=== PATIENT | female | born 1985 | race Caucasian/White ===

== ENCOUNTER 2016-08-27 11:47 | Emergency (ER) | payer OTHER ==
[~2016-08-27 11:47] MED LIST: /MOM400 PO; ACET50TA PO; ANUS2.5C2 EXT; DOCU10ELUD PO; EXCETAB80 PO; IBUP600T26 PO; IBUP80TA PO; LANOOIN21 EX; PERC5TAB6 PO; PRENTAB9 PO; TRAZ50TA4 PO; VALT1TAB PO; VALT500T PO; VIST25CA PO; VITAPRTA PO; ZOLO25TA PO
[2016-08-27] MEDS ORDERED: PERCOCET 5MG/325MG TAB As Ordered ONE (12:16)
--- NOTE | 2016-08-27 12:21 | EDDOCDS ---
Physician Documentation [facility] Name: Wilma Ulloa Age: 31 yrs Sex: Female : 1985 Arrival Date: 08/27/2016 Time: 11:47 Bed TR7 Private MD: Disposition: 08/27/16 12:14 Discharged to Home/Self Care. Impression: Dental caries on pit and fissure surface penetrating into pulp, Jaw pain. - Condition is Stable. - Discharge Instructions: Dental Pain. - Prescriptions for Percocet 5- 325 mg Oral Tablet - take 1 tablet by ORAL route every 6 hours As needed MDD: 4 tabs; 20 tablet. penicillin V potassium 500 mg Oral Tablet - take 1 tablet by ORAL route 4 times per day for 10 days; 40 tablet. - Medication Reconciliation, Local Pharmacy Hours form. - Follow up: Your, Dentist; When: As soon as possible; Reason: Further diagnostic work-up, Continuance of care. - Problem is an ongoing problem. - Symptoms have worsened. Historical: - Allergies: no known allergies; - Home Meds: 1. Motrin Oral 600 mg 2. Tylenol 650 Oral 3. Valtrex 500 mg oral tab 2 tabs once daily - PMHx: HSV; - PSHx: Tubal ligation; Hysterectomy; - Social history: Smoking status: Patient uses tobacco products, current every day smoker. No barriers to communication noted, The patient speaks fluent Sammarinese. - Family history: Not pertinent. - : The pt / caregiver states he / she is not on anticoagulants. Home medication list is obtained from the patient. - Exposure Risk Screening:: None identified. 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 2 in. (157.48 cm) (R); Pain 9/10; 11:49 Body Mass Index 39.32 (97.52 kg, 157.48 cm) jrd MDM: 12:13 oxyCODONE-acetaminophen 5 mg-325 mg 1 tabs PO once ordered. 12:19 Financial registration complete. mm15 Administered Medications: 12:20 Drug: oxyCODONE-acetaminophen 1 tabs [oxycodone-acetaminophen 5 mg-325 mg tablet (1 js13 tabs)] Route: PO; 12:20 Follow up: Response: Pt left department before re-evaluation is appropriate js13 Signatures: Wilfrido Kumar, HEALTH RESEARCHER HEALTH RESEARCHER Rachel CardenasRN RN js13 Cally Richards mm15 MTDD
--- NOTE | 2016-08-27 12:21 | EDDOCDS ---
Nurse's Notes [facility] Name: Wilma Ulloa Age: 31 yrs Sex: Female : 1985 Arrival Date: 08/27/2016 Time: 11:47 Bed TR7 Private MD: Diagnosis: Dental caries on pit and fissure surface penetrating into pulp;Jaw pain Presentation: 08/27 12:02 Presenting complaint: Patient states: Patient states pain in right jaw from tooth js13 decay. Patient states she has bad teeth. Getting progressively worse in last 2 weeks and has appointment tomorrow with dentist. Adult Sepsis Screening: The patient does not have new or worsening altered mentation. Patient's respiratory rate is less than 22. Systolic blood pressure is greater than 100. Patient has a qSOFA score of 0- Negative Sepsis Screen. Suicide/Homicide risk assessment- the patient denies having any suicidal and/or homicidal ideations and does not present with any other emotional, behavioral or mental health complaints. 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 Transition of care: patient was not received from another setting of care. 12:02 Acuity: TISHA Level 4 js13 12:02 Method Of Arrival: Walkin/Carried/Asstd js13 Triage Assessment: 12:04 General: Appears in no apparent distress, Behavior is appropriate for age, cooperative. js13 Pain: Location: mouth Pain currently is 10 out of 10 on a pain scale. Pt Declines HIV testing. Neurological: Level of Consciousness is awake, alert. EENT: Reports pain in right jaw. Respiratory: Airway is patent Respiratory effort is even, unlabored, Respiratory pattern is regular, symmetrical. Derm: Skin is pink, warm & dry. 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 Motrin Oral 600 mg 2. Tylenol 650 Oral 3. Valtrex 500 mg oral tab 2 tabs once daily - PMHx: HSV; - PSHx: Tubal ligation; Hysterectomy; - Social history: Smoking status: Patient uses tobacco products, current every day smoker. No barriers to communication noted, The patient speaks fluent Kinyarwanda. - Family history: Not pertinent. - : The pt / caregiver states he / she is not on anticoagulants. Home medication list is obtained from the patient. - Exposure Risk Screening:: None identified. Screenin:05 Screening information is obtained from the patient. Fall risk: No risks identified. js13 Assistance ADL's: requires no assistance with activities of daily living. Abuse/DV Screen: The patient / caregiver reports he/she is: not in a situation that causes fear, pain or injury. Nutritional screening: No deficits noted. Advance Directives: Currently, there is no health care proxy. home support is adequate. Vital Signs: 11:49 BP 135 / 72 RA Sitting (auto/reg); Pulse 77; Resp 18; Temp 97.1; Pulse Ox 100% on R/A; jrd Weight 97.52 kg (R); Height 5 ft. 2 in. (157.48 cm) (R); Pain 9/10; 11:49 Body Mass Index 39.32 (97.52 kg, 157.48 cm) [facility] Vitals: 11:49 Log In Time: August 27, 2016 at 11:35. [facility] ED Course: 11:49 Patient visited by Trenton Anton PCA. jrd 11:49 Patient moved to Waiting jrd 11:50 Patient visited by Trenton Anton PCA. jrd 11:50 Patient moved to Pre RCE jrd 12:04 Triage Initiated js13 12:05 The patient / caregiver is instructed regarding the plan of care and ED course. js13 12:05 No IV's were initiated during this patient's visit. No procedures done that require js13 assistance. 12:06 Patient visited by Rachel Rm RN. js13 12:06 Patient moved to Triage 3 js13 12:06 Patient moved to Triage 2 ar3 12:07 [facility]fr[facility] F[facility] juju 12:07 Patient visited by Wilfrido Kumar FNP. juju 12:07 Patient visited by Wilfrido Kumar FNP. ke 12:13 Your, Dentist is Referral Physician. ke 12:19 Patient moved to TR7 ar3 Administered Medications: 12:20 Drug: oxyCODONE-acetaminophen 1 tabs [oxycodone-acetaminophen 5 mg-325 mg tablet (1 js13 tabs)] Route: PO; 12:20 Follow up: Response: Pt left department before re-evaluation is appropriate js13 Order Results: There are currently no results for this order. Outcome: 12:14 Discharge ordered by Provider. ke 12:20 Discharge Assessment: Patient awake, alert and oriented x 3. No cognitive and/or js13 functional deficits noted. Patient verbalized understanding of disposition instructions. patient administered narcotics - yes. Pt provided with safe discharge. The following High Risk Discharge criteria are identified: None. Discharged to home ambulatory. Condition: stable. Discharge instructions given to patient, Instructed on discharge instructions, follow up and referral plans. medication usage, Demonstrated understanding of instructions, medications, Pt was receptive of discharge instructions/ teaching. Prescriptions given X 2. No special radiology studies were completed. Property :Personal belongings accompany Pt. 12:20 Patient left the ED. js13 Signatures: Wilfrido Kumra, CONVERTING OPERATOR CONVERTING OPERATOR Lindsay Sears, GAME TESTER GAME TESTER [email or web address] Rachel Rm,CANDI RN js13 Trenton Anton, GAME TESTER GAME TESTER jrd MARY
--- NOTE | 2016-08-29 13:21 | EDDOCDS ---
Physician Documentation [facility] Name: Wilma Ulloa Age: 31 yrs Sex: Female : 1985 Arrival Date: 08/27/2016 Time: 11:47 Bed TR7 Private MD: Disposition: 08/27/16 12:14 Discharged to Home/Self Care. Impression: Dental caries on pit and fissure surface penetrating into pulp, Jaw pain. - Condition is Stable. - Discharge Instructions: Dental Pain. - Prescriptions for Percocet 5- 325 mg Oral Tablet - take 1 tablet by ORAL route every 6 hours As needed MDD: 4 tabs; 20 tablet. penicillin V potassium 500 mg Oral Tablet - take 1 tablet by ORAL route 4 times per day for 10 days; 40 tablet. - Medication Reconciliation, Local Pharmacy Hours form. - Follow up: Your, Dentist; When: As soon as possible; Reason: Further diagnostic work-up, Continuance of care. - Problem is an ongoing problem. - Symptoms have worsened. Historical: - Allergies: no known allergies; - Home Meds: 1. Motrin Oral 600 mg 2. Tylenol 650 Oral 3. Valtrex 500 mg oral tab 2 tabs once daily - PMHx: HSV; - PSHx: Tubal ligation; Hysterectomy; - Social history: Smoking status: Patient uses tobacco products, current every day smoker. No barriers to communication noted, The patient speaks fluent Iranian. - Family history: Not pertinent. - : The pt / caregiver states he / she is not on anticoagulants. Home medication list is obtained from the patient. - Exposure Risk Screening:: None identified. 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 2 in. (157.48 cm) (R); Pain 9/10; 11:49 Body Mass Index 39.32 (97.52 kg, 157.48 cm) jrd MDM: 12:13 oxyCODONE-acetaminophen 5 mg-325 mg 1 tabs PO once ordered. 12:19 Financial registration complete. mm15 12:43 [facility] Payment Agreement was scanned into [employer] and attached to record. mm15 14:53 T-Sheet-- Draft Copy was scanned into [employer] and attached to record. gb Administered Medications: 12:20 Drug: oxyCODONE-acetaminophen 1 tabs [oxycodone-acetaminophen 5 mg-325 mg tablet (1 js13 tabs)] Route: PO; 12:20 Follow up: Response: Pt left department before re-evaluation is appropriate js13 Signatures: Eliza Valdes, Kevin Reg Wilfrido Shook, LEATHER COVERER LEATHER COVERER Rachel Cardenas,RN RN js13 Cally Richards mm15 The chart was reviewed and I authenticate all verbal orders and agree with the evaluation and treatment provided.Attachments: 12:43 [facility] Payment Agreement mm15 14:53 T-Sheet-- Draft Copy gb Chart Complete MTDD
--- NOTE | 2016-08-29 13:21 | EDDOCDS ---
Nurse's Notes [facility] Name: Wilma Ulloa Age: 31 yrs Sex: Female : 1985 Arrival Date: 08/27/2016 Time: 11:47 Bed TR7 Private MD: Diagnosis: Dental caries on pit and fissure surface penetrating into pulp;Jaw pain Presentation: 08/27 12:02 Presenting complaint: Patient states: Patient states pain in right jaw from tooth js13 decay. Patient states she has bad teeth. Getting progressively worse in last 2 weeks and has appointment tomorrow with dentist. Adult Sepsis Screening: The patient does not have new or worsening altered mentation. Patient's respiratory rate is less than 22. Systolic blood pressure is greater than 100. Patient has a qSOFA score of 0- Negative Sepsis Screen. Suicide/Homicide risk assessment- the patient denies having any suicidal and/or homicidal ideations and does not present with any other emotional, behavioral or mental health complaints. 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 Transition of care: patient was not received from another setting of care. 12:02 Acuity: TISHA Level 4 js13 12:02 Method Of Arrival: Walkin/Carried/Asstd js13 Triage Assessment: 12:04 General: Appears in no apparent distress, Behavior is appropriate for age, cooperative. js13 Pain: Location: mouth Pain currently is 10 out of 10 on a pain scale. Pt Declines HIV testing. Neurological: Level of Consciousness is awake, alert. EENT: Reports pain in right jaw. Respiratory: Airway is patent Respiratory effort is even, unlabored, Respiratory pattern is regular, symmetrical. Derm: Skin is pink, warm & dry. 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 Motrin Oral 600 mg 2. Tylenol 650 Oral 3. Valtrex 500 mg oral tab 2 tabs once daily - PMHx: HSV; - PSHx: Tubal ligation; Hysterectomy; - Social history: Smoking status: Patient uses tobacco products, current every day smoker. No barriers to communication noted, The patient speaks fluent Urdu. - Family history: Not pertinent. - : The pt / caregiver states he / she is not on anticoagulants. Home medication list is obtained from the patient. - Exposure Risk Screening:: None identified. Screenin:05 Screening information is obtained from the patient. Fall risk: No risks identified. js13 Assistance ADL's: requires no assistance with activities of daily living. Abuse/DV Screen: The patient / caregiver reports he/she is: not in a situation that causes fear, pain or injury. Nutritional screening: No deficits noted. Advance Directives: Currently, there is no health care proxy. home support is adequate. Vital Signs: 11:49 BP 135 / 72 RA Sitting (auto/reg); Pulse 77; Resp 18; Temp 97.1; Pulse Ox 100% on R/A; jrd Weight 97.52 kg (R); Height 5 ft. 2 in. (157.48 cm) (R); Pain 9/10; 11:49 Body Mass Index 39.32 (97.52 kg, 157.48 cm) [facility] Vitals: 11:49 Log In Time: August 27, 2016 at 11:35. [facility] ED Course: 11:49 Patient visited by Trenton Anton PCA. jrd 11:49 Patient moved to Waiting jrd 11:50 Patient visited by Trenton Anton PCA. jrd 11:50 Patient moved to Pre RCE jrd 12:04 Triage Initiated js13 12:05 The patient / caregiver is instructed regarding the plan of care and ED course. js13 12:05 No IV's were initiated during this patient's visit. No procedures done that require js13 assistance. 12:06 Patient visited by Rachel Rm RN. js13 12:06 Patient moved to Triage 3 js13 12:06 Patient moved to Triage 2 ar3 12:07 Wilfrido Kumar FNP is PHCP. ke 12:07 Patient visited by Wilfrido Kumar FNP. ke 12:07 Patient visited by Wilfrido Kumar FNP. ke 12:13 Your, Dentist is Referral Physician. ke 12:19 Patient moved to TR7 ar3 12:43 [facility] Payment Agreement was scanned into [facility] and attached to record. mm15 14:53 T-Sheet-- Draft Copy was scanned into [employer] [facility] and attached to record. gb Administered Medications: 12:20 Drug: oxyCODONE-acetaminophen 1 tabs [oxycodone-acetaminophen 5 mg-325 mg tablet (1 js13 tabs)] Route: PO; 12:20 Follow up: Response: Pt left department before re-evaluation is appropriate js13 Order Results: There are currently no results for this order. Outcome: 12:14 Discharge ordered by Provider. ke 12:20 Discharge Assessment: Patient awake, alert and oriented x 3. No cognitive and/or js13 functional deficits noted. Patient verbalized understanding of disposition instructions. patient administered narcotics - yes. Pt provided with safe discharge. The following High Risk Discharge criteria are identified: None. Discharged to home ambulatory. Condition: stable. Discharge instructions given to patient, Instructed on discharge instructions, follow up and referral plans. medication usage, Demonstrated understanding of instructions, medications, Pt was receptive of discharge instructions/ teaching. Prescriptions given X 2. No special radiology studies were completed. Property :Personal belongings accompany Pt. 12:20 Patient left the ED. js13 Signatures: Eliza Valdes, Reg Reg gb Wilfrido Kumar, COPYWRITER COPYWRITER Lindsay Sears, GMAT INSTRUCTOR GMAT INSTRUCTOR ar3 Rachel Rm,CANDI RN js13 Cally Richards mm15 Trenton Anton, GMAT INSTRUCTOR GMAT INSTRUCTOR jrd Chart Complete MARY
--- NOTE | 2016-08-29 13:21 | EDDOCDS ---
Physician Documentation [facility] Name: Wilma Ulloa Age: 31 yrs Sex: Female : 1985 Arrival Date: 08/27/2016 Time: 11:47 Bed TR7 Private MD: Disposition: 08/27/16 12:14 Discharged to Home/Self Care. Impression: Dental caries on pit and fissure surface penetrating into pulp, Jaw pain. - Condition is Stable. - Discharge Instructions: Dental Pain. - Prescriptions for Percocet 5- 325 mg Oral Tablet - take 1 tablet by ORAL route every 6 hours As needed MDD: 4 tabs; 20 tablet. penicillin V potassium 500 mg Oral Tablet - take 1 tablet by ORAL route 4 times per day for 10 days; 40 tablet. - Medication Reconciliation, Local Pharmacy Hours form. - Follow up: Your, Dentist; When: As soon as possible; Reason: Further diagnostic work-up, Continuance of care. - Problem is an ongoing problem. - Symptoms have worsened. Historical: - Allergies: no known allergies; - Home Meds: 1. Motrin Oral 600 mg 2. Tylenol 650 Oral 3. Valtrex 500 mg oral tab 2 tabs once daily - PMHx: HSV; - PSHx: Tubal ligation; Hysterectomy; - Social history: Smoking status: Patient uses tobacco products, current every day smoker. No barriers to communication noted, The patient speaks fluent Gibraltarian. - Family history: Not pertinent. - : The pt / caregiver states he / she is not on anticoagulants. Home medication list is obtained from the patient. - Exposure Risk Screening:: None identified. 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 2 in. (157.48 cm) (R); Pain 9/10; 11:49 Body Mass Index 39.32 (97.52 kg, 157.48 cm) jrd MDM: 12:13 oxyCODONE-acetaminophen 5 mg-325 mg 1 tabs PO once ordered. 12:19 Financial registration complete. mm15 12:43 [facility] Payment Agreement was scanned into [employer] and attached to record. mm15 14:53 T-Sheet-- Draft Copy was scanned into [employer] and attached to record. gb Administered Medications: 12:20 Drug: oxyCODONE-acetaminophen 1 tabs [oxycodone-acetaminophen 5 mg-325 mg tablet (1 js13 tabs)] Route: PO; 12:20 Follow up: Response: Pt left department before re-evaluation is appropriate js13 Signatures: Eliza Valdes, Kevin Reg Wilfrido Shook, OIL WELL DRILLING MANAGER OIL WELL DRILLING MANAGER Rachel Cardenas,RN RN js13 Cally Richards mm15 The chart was reviewed and I authenticate all verbal orders and agree with the evaluation and treatment provided.Attachments: 12:43 [facility] Payment Agreement mm15 14:53 T-Sheet-- Draft Copy gb Chart Complete MTDD
== END 2016-08-27 12:20 | disposition home or self-care (01) ==
LOC: M ED 11:47
DX: K02.9 Dental caries, unspecified (principal); K08.89 Other specified disorders of teeth and supporting structures; B00.9 Herpesviral infection, unspecified; Z72.0 Tobacco use; Z79.899 Other long term (current) drug therapy

== ENCOUNTER 2018-03-07 13:34 | Emergency (ER) | payer OTHER ==
[2018-03-07] MEDS: NORCO, ANEXSIA 5/325MG TABLET (HYDROcodone/ACETAMINOPHEN) PO (14:52)
== END 2018-03-07 14:54 | disposition home or self-care (01) ==
LOC: M ED 13:34
DX: R68.84 Jaw pain (principal); K08.89 Other specified disorders of teeth and supporting structures; H60.92 Unspecified otitis externa, left ear; F17.200 Nicotine dependence, unspecified, uncomplicated; Z79.2 Long term (current) use of antibiotics; Z79.899 Other long term (current) drug therapy; Z86.19 Personal history of other infectious and parasitic diseases
CPT/HCPCS: 99282

== ENCOUNTER 2018-03-07 21:44 | Emergency (ER) | payer OTHER ==
[2018-03-07] MEDS: OXYCODONE/APAP 5MG/325MG(BULK FOR ED) 1 TABLET PO (22:27)
== END 2018-03-07 22:30 | disposition home or self-care (01) ==
LOC: M ED 21:44
DX: H92.02 Otalgia, left ear (principal); K13.79 Other lesions of oral mucosa; R22.0 Localized swelling, mass and lump, head; H66.42 Suppurative otitis media, unspecified, left ear; A60.00 Herpesviral infection of urogenital system, unspecified; F17.210 Nicotine dependence, cigarettes, uncomplicated; Z79.2 Long term (current) use of antibiotics; Z79.899 Other long term (current) drug therapy
CPT/HCPCS: 99282

== ENCOUNTER 2019-08-11 23:19 | Emergency (ER) | payer BC, OTHER ==
[~2019-08-11] VITALS: Ht 157.5 cm; Wt 116.9 kg
[~2019-08-11 23:19] MED LIST changes: -/MOM400 PO; -ACET50TA PO; +AMOX500T PO; +CLEO300C2 PO; -DOCU10ELUD PO; +DOCU5LIQ PO; +HYDR-3715 PO; +MAGICMW SS; +MAPA500T17 PO; +MAPA500T2 PO; +MILK10SU PO; +PERC5TAB12 PO; -PERC5TAB6 PO; +TRAZ-252 PO; -TRAZ50TA4 PO
[2019-08-11] MEDS ORDERED: DICL75TA PO (23:27)
[2019-08-11] MEDS ORDERED: TIZA4TAB4 PO (23:27)
[2019-08-12] MEDS ORDERED: LIDOCAINE 4% CREAM 5GM (LMX4) TOP STA (01:40)
[2019-08-12] MEDS ORDERED: methylPREDNISolone INJ 125 MG/2 ML VIAL (J2930) IM ONE (01:45)
[2019-08-12] MEDS ORDERED: diazePAM 10 MG TAB PO ONE (01:45)
--- NOTE | 2019-08-12 02:08 | REPVR ---
PROCEDURE INFORMATION: Exam: CT Lumbar Spine Without Contrast Exam date and time: 08/12/2019 1:40 AM Age: 34 years old Clinical indication: Other: Tender leg pain; Additional info: PT tender, radiculopathy R TECHNIQUE: Imaging protocol: Computed tomography images of the lumbar spine without contrast. Radiation optimization: All CT scans at this facility use at least one of these dose optimization techniques: automated exposure control; mA and/or kV adjustment per patient size (includes targeted exams where dose is matched to clinical indication); or iterative reconstruction. COMPARISON: No relevant prior studies available. FINDINGS: Vertebrae: No acute fracture. Normal alignment. Discs/Spinal canal/Neural foramina: Minimal to mild multilevel facet arthropathy. Minimal posterior central protrusion at L4-L5. Mild interspace narrowing with vacuum phenomenon at L5-S1 with mild posterior central protrusion of the disc with early osteophytes. No significant spinal or foraminal stenosis. Appendix: A normal appendix is seen. Soft tissues: Unremarkable. IMPRESSION: Early degenerative changes, particularly degenerative disc change at L5-S1. No significant spinal or foraminal stenosis. Electronically signed by: Juan Duque On 08/12/2019 02:07:59 AM
[2019-08-12] MEDS ORDERED: LIDO5DIS41 TOP (02:43)
[2019-08-12] MEDS ORDERED: PRED20TA PO (02:43)
[2019-08-12] MEDS ORDERED: VALI5TAB PO ×2 (02:43→02:45)
[2019-08-12] MEDS ORDERED: ROBA750T4 PO (02:47)
[2019-08-12 02:59] VITALS: BP 145/83
== END 2019-08-12 03:04 | disposition home or self-care (01) ==
LOC: M ED 23:19
DX: M53.3 Sacrococcygeal disorders, not elsewhere classified (principal); M54.16 Radiculopathy, lumbar region; Z87.01 Personal history of pneumonia (recurrent); F17.200 Nicotine dependence, unspecified, uncomplicated; M51.37 Other intervertebral disc degeneration, lumbosacral region
CPT/HCPCS: 72131; 96372; 99283; J2930

== ENCOUNTER 2020-05-08 11:26 | Emergency (ER) | payer BC ==
[~2020-05-08] VITALS: Ht 157.5 cm; Wt 111.2 kg
[~2020-05-08 11:26] MED LIST changes: +DICL75TA PO; +LIDO5DIS41 TOP; +PRED20TA PO; +ROBA750T4 PO; +TIZA4TAB4 PO; +VALI5TAB PO
[2020-05-08 11:27] VITALS: BP 131/79
[2020-05-08] MEDS ORDERED: AUGM875T28 PO (12:44)
[2020-05-08] MEDS ORDERED: NORC1TAB7 PO (12:44)
[2020-05-08] MEDS ORDERED: IBUP-1022 PO (12:44)
[2020-05-08] MEDS ORDERED: NORCO, ANEXSIA 5/325MG TABLET (HYDROcodone/ACETAMINOPHEN) PO ONE (12:45)
[2020-05-08] MEDS ORDERED: AUGMENTIN 875 MG TAB PO ONE (12:45)
== END 2020-05-08 13:04 | disposition home or self-care (01) ==
LOC: M ED 11:26
DX: K02.9 Dental caries, unspecified (principal); F17.200 Nicotine dependence, unspecified, uncomplicated

== ENCOUNTER 2020-06-16 12:35 | Emergency (ER) | payer BC ==
[~2020-06-16] VITALS: Ht 157.5 cm; Wt 112.3 kg
[~2020-06-16 12:35] MED LIST changes: +AUGM875T28 PO; +IBUP-1022 PO; +NORC1TAB7 PO
[2020-06-16] MEDS ORDERED: VALT1TAB PO (12:43)
[2020-06-16] MEDS ORDERED: KETOROLAC 30 MG/ML 1ML VIAL IV ONE (13:30)
[2020-06-16] MEDS ORDERED: ONDANSETRON 4MG/2ML VIAL IV ONE (13:30)
[2020-06-16] MEDS ORDERED: NS 1,000 ML IV ONE (13:30)
--- NOTE | 2020-06-16 14:09 | REP ---
INDICATION: left flank into LUQ COMPARISON: Comparison study August 07, 2014.. TECHNIQUE: Helical scanning is acquired in 4 mm axial images were reformatted. Coronal and sagittal MPR images were generated and reviewed. 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 Normal bowel gas pattern. The lung bases are clear on axial CT images. No pleural effusion or upper abdominal ascites is seen. The liver and the spleen are normal in size homogeneous in texture. Normal adrenal glands are seen. No abnormality is noted in the gallbladder or pancreas. The appendix is seen in the sub a Paddock space in the right upper abdomen and is unremarkable. Uterus is surgically absent. Urinary bladder is intact. No ovarian abnormality is seen. There is no evidence of diverticulosis. There is however an area of inflammation along the descending colon on the left side with pericolonic fat streaking and pericolic gutter streaking. The inflammatory pericolonic edema surrounds a lobule of fatty tissue and the findings are compatible with epiploic appendagitis. No abdominal wall defect is seen. No bony destructive lesion is seen. There is no evidence of abnormal fluid collection or free air. IMPRESSION: There is evidence of epiploic appendagitis affecting the mid descending colon in the left flank. Status post hysterectomy. Otherwise negative CT study of the abdomen and pelvis. <Electronically signed by Tate Rodriguez > 06/16/20 [id number]
[2020-06-16 14:12] LABS: BASO % 0.3 % (0.0-1.0); EOS # 0.1 10^3/uL (0.0-0.5); EOS % 0.5 % (0.0-3.0); HEMATOCRIT 44.2 % (36.0-47.0); HEMOGLOBIN 14.5 g/dl (12.0-15.5); LYMPH # 2.6 10^3/uL (1.5-5.0); LYMPH % 26.4 % (24.0-44.0); MEAN CORPUSCULAR HEMOGLOBIN 30.7 pg (27.0-33.0); MEAN CORPUSCULAR HGB CONC 32.8 g/dl (32.0-36.5); MEAN CORPUSCULAR VOLUME 93.6 fl (80.0-96.0); MONO # 0.6 10^3/uL (0.0-0.8); MONO % 5.7 % (0.0-5.0); NEUTROPHILS # 6.6 10^3/uL (1.5-8.5); NEUTROPHILS % 66.8 % (36.0-66.0); PLATELET COUNT, AUTOMATED 220 10^3/uL (150-450); RED BLOOD COUNT 4.72 10^6/uL (4.00-5.40); WHITE BLOOD COUNT 9.9 10^3/uL (4.0-10.0)
[2020-06-16 14:43] LABS: ALBUMIN 3.4 GM/DL (3.2-5.2); ALT/SGPT 32 U/L (12-78); BILIRUBIN,DIRECT 0.1 MG/DL (0.0-0.2); BILIRUBIN,TOTAL 0.4 MG/DL (0.2-1.0); BLOOD UREA NITROGEN 10 MG/DL (7-18); CALCIUM LEVEL 8.4 MG/DL (8.5-10.1); CARBON DIOXIDE LEVEL 29 MEQ/L (21-32); CHLORIDE LEVEL 106 MEQ/L (98-107); CK-MB VALUE MASS < 1.0 NG/ML (<3.6); CPK CREATINE PHOSPHOKINASE 71 U/L (26-192); CREATININE FOR GFR 0.67 MG/DL (0.55-1.30); GLOMERULAR FILTRATION RATE > 60.0 (>60); GLUCOSE, FASTING 81 MG/DL (70-100); LIPASE 93 U/L (73-393); MB/CK RELATIVE INDEX 1.41 (< OR =4); SODIUM LEVEL 139 MEQ/L (136-145); TOTAL PROTEIN 6.7 GM/DL (6.4-8.2); TROPONIN I < 0.02 NG/ML (< 0.10)
[2020-06-16] MEDS ORDERED: NORCO, ANEXSIA 5/325MG TABLET (HYDROcodone/ACETAMINOPHEN) PO ONE (14:45)
[2020-06-16] MEDS ORDERED: NORC1TAB7 PO (15:16)
[2020-06-16 15:29] VITALS: BP 134/67
== END 2020-06-16 15:42 | disposition home or self-care (01) ==
LOC: M ED 12:35
DX: K38.8 Other specified diseases of appendix (principal); F41.9 Anxiety disorder, unspecified; F31.89 Other bipolar disorder; N80.9 Endometriosis, unspecified; Z86.19 Personal history of other infectious and parasitic diseases; Z87.448 Personal history of other diseases of urinary system
CPT/HCPCS: 36415; 74176; 80048; 80076; 81001; 82550; 82553; 83690; 84484; 85025; 96361; 96374; 96375; 99284; J1885; J2405

== ENCOUNTER → 2021-03-16 | Outpatient (CLI) | payer BC ==
[2021-03-16 13:49] LABS: BASO % 0.4 % (0.0-1.0); EOS # 0.1 10^3/uL (0.0-0.5); EOS % 0.5 % (0.0-3.0); HEMATOCRIT 45.9 % (36.0-47.0); HEMOGLOBIN 15.5 g/dl (12.0-15.5); LYMPH # 2.8 10^3/uL (1.5-5.0); LYMPH % 27.7 % (24.0-44.0); MEAN CORPUSCULAR HEMOGLOBIN 31.8 pg (27.0-33.0); MEAN CORPUSCULAR HGB CONC 33.8 g/dl (32.0-36.5); MEAN CORPUSCULAR VOLUME 94.1 fl (80.0-96.0); MONO # 0.6 10^3/uL (0.0-0.8); MONO % 5.7 % (2.0-8.0); NEUTROPHILS # 6.6 10^3/uL (1.5-8.5); NEUTROPHILS % 65.4 % (36.0-66.0); PLATELET COUNT, AUTOMATED 212 10^3/uL (150-450); RED BLOOD COUNT 4.88 10^6/uL (4.00-5.40); WHITE BLOOD COUNT 10.1 10^3/uL (4.0-10.0)
[2021-03-16 14:18] LABS: ALBUMIN 3.7 GM/DL (3.2-5.2); ALT/SGPT 25 U/L (12-78); BILIRUBIN,TOTAL 0.4 MG/DL (0.2-1.0); BLOOD UREA NITROGEN 7 MG/DL (7-18); CALCIUM LEVEL 8.8 MG/DL (8.5-10.1); CARBON DIOXIDE LEVEL 28 MEQ/L (21-32); CHLORIDE LEVEL 108 MEQ/L (98-107); CHOLESTEROL LEVEL 161 MG/DL (<200); CHOLESTEROL RISK RATIO 4.351 (<5); FREE T4 1.11 NG/DL (0.76-1.46); GLOMERULAR FILTRATION RATE > 60.0 (>60); GLUCOSE, FASTING 82 MG/DL (70-100); HDL CHOLESTEROL 37 MG/DL (>40); LDL CHOLESTEROL 101 MG/DL (<100); NON-HDL-C 124 MG/DL; POTASSIUM SERUM 4.3 MEQ/L (3.5-5.1); SODIUM LEVEL 140 MEQ/L (136-145); TOTAL PROTEIN 7.2 GM/DL (6.4-8.2); TRIGLYCERIDES LEVEL 115 MG/DL (<150)
[2021-03-16 14:43] LABS: HEMOGLOBIN A1c 4.8 %
== END ==
LOC: M PLALAB 10:00
PROVIDERS: ATTEND Physician Assistant Medical
DX: Z13.1 Encounter for screening for diabetes mellitus (principal); E66.9 Obesity, unspecified; Z13.220 Encounter for screening for lipoid disorders

== ENCOUNTER → 2021-08-04 | Outpatient (CLI) | payer BC ==
[~2021-08-04] MED LIST changes: +TIZA10TA PO; -TIZA4TAB4 PO
[2021-08-04 14:11] LABS: BASO % 0.3 % (0.0-1.0); EOS # 0.1 10^3/uL (0.0-0.5); EOS % 0.7 % (0.0-3.0); HEMATOCRIT 43.8 % (36.0-47.0); HEMOGLOBIN 14.9 g/dl (12.0-15.5); LYMPH # 3.1 10^3/uL (1.5-5.0); LYMPH % 35.7 % (24.0-44.0); MEAN CORPUSCULAR HEMOGLOBIN 31.2 pg (27.0-33.0); MEAN CORPUSCULAR VOLUME 91.8 fl (80.0-96.0); MONO # 0.6 10^3/uL (0.0-0.8); MONO % 7.1 % (2.0-8.0); NEUTROPHILS # 4.9 10^3/uL (1.5-8.5); NEUTROPHILS % 55.9 % (36.0-66.0); PLATELET COUNT, AUTOMATED 221 10^3/uL (150-450); RED BLOOD COUNT 4.77 10^6/uL (4.00-5.40); WHITE BLOOD COUNT 8.8 10^3/uL (4.0-10.0)
[2021-08-04 14:42] LABS: ALBUMIN 3.5 GM/DL (3.2-5.2); ALT/SGPT 24 U/L (12-78); BILIRUBIN,TOTAL 0.2 MG/DL (0.2-1.0); BLOOD UREA NITROGEN 12 MG/DL (7-18); CALCIUM LEVEL 8.7 MG/DL (8.5-10.1); CARBON DIOXIDE LEVEL 26 MEQ/L (21-32); CHLORIDE LEVEL 108 MEQ/L (98-107); CHOLESTEROL LEVEL 153 MG/DL (<200); CHOLESTEROL RISK RATIO 4.135 (<5); CREATININE FOR GFR 0.59 MG/DL (0.55-1.30); FREE T4 0.96 NG/DL (0.76-1.46); GLOMERULAR FILTRATION RATE > 60.0 (>60); GLUCOSE, FASTING 75 MG/DL (70-100); HDL CHOLESTEROL 37 MG/DL (>40); LDL CHOLESTEROL 90 MG/DL (<100); NON-HDL-C 116 MG/DL; POTASSIUM SERUM 4.2 MEQ/L (3.5-5.1); SODIUM LEVEL 139 MEQ/L (136-145); TOTAL PROTEIN 6.8 GM/DL (6.4-8.2); TRIGLYCERIDES LEVEL 132 MG/DL (<150)
[2021-08-04 15:45] LABS: HEMOGLOBIN A1c 4.6 %
== END ==
LOC: M PLALAB 12:04
PROVIDERS: ATTEND Physician Assistant Medical
DX: Z13.1 Encounter for screening for diabetes mellitus (principal); Z13.220 Encounter for screening for lipoid disorders; Z12.11 Encounter for screening for malignant neoplasm of colon; E66.9 Obesity, unspecified

== ENCOUNTER → 2021-09-08 | Outpatient (CLI) | payer BC | LOC: M PLALAB 08:55 | PROVIDERS: ATTEND Physician Assistant Medical | DX: Z02.82 Encounter for adoption services (principal) ==

== ENCOUNTER → 2021-10-12 | Outpatient (REF) | payer BC | LOC: M SFHCPLAZ 13:01 | PROVIDERS: ATTEND Physician Assistant | DX: J06.9 Acute upper respiratory infection, unspecified (principal) ==

== ENCOUNTER 2022-05-01 17:28 | Emergency (ER) | payer BC, OTHER ==
[~2022-05-01] VITALS: Ht 154.9 cm; Wt 87.3 kg
[2022-05-01] MEDS ORDERED: PHEN30CA21 (17:51)
[2022-05-01] MEDS ORDERED: TOPI25TA10 (17:51)
[2022-05-01] MEDS ORDERED: SAXE1INJ (17:51)
[2022-05-01 19:57] LABS: HEMATOCRIT 44.1 % (36.0-47.0); HEMOGLOBIN 14.9 g/dl (12.0-15.5); MEAN CORPUSCULAR HEMOGLOBIN 32.1 pg (27.0-33.0); MEAN CORPUSCULAR HGB CONC 33.8 g/dl (32.0-36.5); PLATELET COUNT, AUTOMATED 223 10^3/uL (150-450); RED BLOOD COUNT 4.64 10^6/uL (4.00-5.40); WHITE BLOOD COUNT 9.6 10^3/uL (4.0-10.0)
[2022-05-01 20:38] LABS: BLOOD UREA NITROGEN 10 MG/DL (7-18); CALCIUM LEVEL 8.9 MG/DL (8.5-10.1); CARBON DIOXIDE LEVEL 26 MEQ/L (21-32); CHLORIDE LEVEL 110 MEQ/L (98-107); CREATININE FOR GFR 0.73 MG/DL (0.55-1.30); GLOMERULAR FILTRATION RATE > 60.0 (>60); GLUCOSE, FASTING 81 MG/DL (70-100); POTASSIUM SERUM 4.5 MEQ/L (3.5-5.1); SODIUM LEVEL 139 MEQ/L (136-145)
[2022-05-01] MEDS ORDERED: NS 1,000 ML IV ONE (23:30)
[2022-05-01] MEDS ORDERED: ISOVUE-370 76% 100ML VIAL As Ordered ONE (23:35)
[2022-05-02] MEDS ORDERED: FLEET OIL RETENTION ENEMA PR ONE (00:45)
[2022-05-02] MEDS ORDERED: FLEET ENEMA PR ONE (00:45)
[2022-05-02] MEDS ORDERED: GOLYLQ PO (02:07)
[2022-05-02] MEDS ORDERED: PROC1CRE TOP (02:07)
[2022-05-02 02:17] VITALS: BP 144/68
== END 2022-05-02 02:19 | disposition home or self-care (01) ==
LOC: M ED 17:28
DX: K59.00 Constipation, unspecified (principal); K64.8 Other hemorrhoids; F41.9 Anxiety disorder, unspecified; F32.9 Major depressive disorder, single episode, unspecified; Z86.19 Personal history of other infectious and parasitic diseases; F17.200 Nicotine dependence, unspecified, uncomplicated; F12.10 Cannabis abuse, uncomplicated; Z79.899 Other long term (current) drug therapy

== ENCOUNTER → 2022-05-16 | Outpatient (CLI) | payer OTHER ==
[~2022-05-16] MED LIST changes: +GOLYLQ PO; +PHEN30CA21; +PROC1CRE TOP; +SAXE1INJ; +TOPI25TA10
[2022-05-16 15:41] LABS: CHOLESTEROL RISK RATIO 3.763 (<5)
[2022-05-16 16:19] LABS: HEMOGLOBIN A1c 4.5 %
== END ==
LOC: M PLALAB 11:28
PROVIDERS: ATTEND Physician Assistant Medical
DX: Z13.1 Encounter for screening for diabetes mellitus (principal); Z13.220 Encounter for screening for lipoid disorders

== ENCOUNTER → 2022-10-23 | Outpatient (CLI) | payer BC | LOC: M WHC 12:33 | PROVIDERS: ATTEND Physician Assistant Medical | DX: M79.89 Other specified soft tissue disorders (principal) ==

== ENCOUNTER → 2022-10-23 | Outpatient (CLI) | payer BC ==
[2022-10-23 14:32] LABS: BASO % 0.3 % (0.0-1.0); EOS % 0.4 % (0.0-3.0); HEMATOCRIT 46.4 % (36.0-47.0); HEMOGLOBIN 15.2 g/dl (12.0-15.5); LYMPH # 2.1 10^3/uL (1.5-5.0); LYMPH % 22.3 % (24.0-44.0); MEAN CORPUSCULAR HGB CONC 32.8 g/dl (32.0-36.5); MEAN CORPUSCULAR VOLUME 97.7 fl (80.0-96.0); MONO # 0.6 10^3/uL (0.0-0.8); MONO % 6.1 % (2.0-8.0); NEUTROPHILS # 6.7 10^3/uL (1.5-8.5); NEUTROPHILS % 70.6 % (36.0-66.0); PLATELET COUNT, AUTOMATED 231 10^3/uL (150-450); RED BLOOD COUNT 4.75 10^6/uL (4.00-5.40); WHITE BLOOD COUNT 9.5 10^3/uL (4.0-10.0)
[2022-10-23 14:37] LABS: ALBUMIN 3.8 G/DL (3.2-5.2); ALKALINE PHOSPHATASE 72 U/L (46-116); ALT/SGPT 20 U/L (7.0-40); AST/SGOT 16 U/L (<34); BILIRUBIN,TOTAL 0.3 MG/DL (0.3-1.2); BLOOD UREA NITROGEN 14 MG/DL (9-23); CARBON DIOXIDE LEVEL 25 MMOL/L (20-31); CHLORIDE LEVEL 111 MMOL/L (98-107); CREATININE FOR GFR 0.63 MG/DL (0.55-1.30); FREE T4 0.98 NG/DL (0.89-1.76); GLOMERULAR FILTRATION RATE > 60.0 (>60); GLUCOSE, FASTING 88 MG/DL (60-100); POTASSIUM SERUM 4.2 MMOL/L (3.5-5.1); SODIUM LEVEL 141 MMOL/L (136-145); THYROID STIMULATING HORMONE 1.879 uIU/ML (0.55-4.78); TOTAL PROTEIN 6.7 G/DL (5.7-8.2)
== END ==
LOC: M PLALAB 09:37
PROVIDERS: ATTEND Physician Assistant Medical
DX: M79.89 Other specified soft tissue disorders (principal); R63.5 Abnormal weight gain

== ENCOUNTER → 2023-05-22 | Outpatient (CLI) | payer BC | LOC: M WHC 11:04 | PROVIDERS: ATTEND Physician Assistant Medical | DX: N63.22 Unspecified lump in the left breast, upper inner quadrant (principal); N63.14 Unspecified lump in the right breast, lower inner quadrant | CPT/HCPCS: 76642; 77066; G0279 ==

== ENCOUNTER → 2023-06-14 | Outpatient (REF) | payer BC ==
[2023-06-14 14:58] LABS: AMORPHOUS SEDIMENT SMALL (NEGATIVE); APPEARANCE, URINE CLOUDY (CLEAR); BACTERIA, URINE AUTO NEGATIVE (NEGATIVE); BILIRUBIN, URINE AUTO NEGATIVE (NEGATIVE); BLOOD, URINE BLOOD NEGATIVE (NEGATIVE); COLOR, URINE AMBER (YELLOW); GLUCOSE, URINE (UA) AUTO NEGATIVE (NEGATIVE); KETONE, URINE AUTO NEGATIVE (NEGATIVE); LEUKOCYTE ESTERASE, URINE AUTO 3+ (NEGATIVE); MUCUS, URINE SMALL (NEGATIVE); NITRITE, URINE AUTO POSITIVE (NEGATIVE); PROTEIN, URINE AUTO NEGATIVE (NEGATIVE); RBC, URINE AUTO 5 /HPF (0-3); SPECIFIC GRAVITY URINE AUTO 1.019 (1.002-1.035); SQUAMOUS EPITHELIAL CELL UR AU 1 /HPF (0-6); UROBILINOGEN, URINE AUTO 0.2 mg/dL (0.0-2.0); WBC, URINE AUTO TNTC /HPF (0-3)
== END ==
LOC: M SFHCPLAZ 13:34
PROVIDERS: ATTEND Physician Assistant Medical
DX: R30.0 Dysuria (principal)

== ENCOUNTER → 2023-08-23 | Outpatient (CLI) | payer BC ==
[2023-08-23 12:58] LABS: APPEARANCE, URINE MANUAL HAZY (CLEAR); BILIRUBIN, URINE MANUAL NEGATIVE (NEGATIVE); BLOOD URINE MANUAL NEGATIVE (NEGATIVE); COLOR, URINE MANUAL YELLOW (YELLOW); GLUCOSE, URINE (UA) MANUAL NEGATIVE (NEGATIVE); KETONE, URINE MANUAL NEGATIVE (NEGATIVE); LEUKOCYTE ESTERASE, URINE MAN POSITIVE (NEGATIVE); NITRITE, URINE MANUAL NEGATIVE (NEGATIVE); PROTEIN, URINE MANUAL TRACE mg/dL (NEGATIVE); UROBILINOGEN, URINE MANUAL NORMAL (NORMAL)
[2023-08-23 13:06] LABS: BASO % 0.4 % (0.0-1.0); EOS % 0.4 % (0.0-3.0); HEMATOCRIT 43.6 % (36.0-47.0); HEMOGLOBIN 15.1 g/dl (12.0-15.5); LYMPH % 21.4 % (24.0-44.0); MEAN CORPUSCULAR HEMOGLOBIN 33.1 pg (27.0-33.0); MEAN CORPUSCULAR HGB CONC 34.6 g/dl (32.0-36.5); MEAN CORPUSCULAR VOLUME 95.6 fl (80.0-96.0); MONO # 0.6 10^3/uL (0.0-0.8); MONO % 6.4 % (2.0-8.0); NEUTROPHILS # 6.6 10^3/uL (1.5-8.5); NEUTROPHILS % 71.1 % (36.0-66.0); PLATELET COUNT, AUTOMATED 251 10^3/uL (150-450); RED BLOOD COUNT 4.56 10^6/uL (4.00-5.40); WHITE BLOOD COUNT 9.2 10^3/uL (4.0-10.0)
[2023-08-23 13:12] LABS: ALBUMIN 3.8 G/DL (3.2-5.2); ALKALINE PHOSPHATASE 75 U/L (46-116); ALT/SGPT 22 U/L (7.0-40); AST/SGOT 14 U/L (<34); BILIRUBIN,TOTAL 0.4 MG/DL (0.3-1.2); BLOOD UREA NITROGEN 12 MG/DL (9-23); CARBON DIOXIDE LEVEL 31 MMOL/L (20-31); CHLORIDE LEVEL 108 MMOL/L (98-107); CHOLESTEROL LEVEL 130 MG/DL (<200); CHOLESTEROL RISK RATIO 3.25 (<5); CREATININE FOR GFR 0.89 MG/DL (0.55-1.30); GLOMERULAR FILTRATION RATE > 60.0 (>60); GLUCOSE, FASTING 80 MG/DL (60-100); POTASSIUM SERUM 4.6 MMOL/L (3.5-5.1); SODIUM LEVEL 141 MMOL/L (136-145); TOTAL PROTEIN 6.5 G/DL (5.7-8.2); TRIGLYCERIDES LEVEL 75 MG/DL (<150)
[2023-08-23 13:13] LABS: INR 1.08; PARTIAL THROMBOPLASTIN TIME 31.3 SECONDS (24.8-34.2); PROTHROMBIN TIME 13.7 SECONDS (12.5-14.5)
[2023-08-23 13:14] LABS: FREE T4 1.13 NG/DL (0.89-1.76); THYROID STIMULATING HORMONE 1.002 uIU/ML (0.55-4.78)
[2023-08-23 13:14] LABS: RBC, URINE 0-1 /hpf (0-3); SQUAMOUS EPITHELIAL CELL URINE MOD AMOUNT /hpf (SMALL AMT)
[2023-08-23 13:15] LABS: BACTERIA, URINE SMALL AMOUNT; CALCIUM OXALATE CRYSTALS,URINE SMALL AMOUNT /hpf; HYALINE CAST, URINE NONE SEEN /lpf (0-1)
[2023-08-23 13:16] LABS: HEMOGLOBIN A1c 4.6 % (4.0-6.0)
== END ==
LOC: M PLALAB 11:03
PROVIDERS: ATTEND Physician Assistant Medical
DX: E66.9 Obesity, unspecified (principal); Z13.220 Encounter for screening for lipoid disorders; Z13.1 Encounter for screening for diabetes mellitus; N64.89 Other specified disorders of breast; Z68.32 Body mass index [BMI] 32.0-32.9, adult

== ENCOUNTER → 2023-09-20 | Outpatient (REF) | payer BC | LOC: M SFHCPLAZ 16:31 | PROVIDERS: ATTEND Physician Assistant Medical | DX: R82.90 Unspecified abnormal findings in urine (principal); Z53.9 Procedure and treatment not carried out, unspecified reason ==

== ENCOUNTER → 2023-09-24 | Outpatient (REF) | payer BC ==
[2023-09-24 13:53] LABS: APPEARANCE, URINE CLEAR (CLEAR); BACTERIA, URINE AUTO NEGATIVE (NEGATIVE); BILIRUBIN, URINE AUTO NEGATIVE (NEGATIVE); BLOOD, URINE BLOOD NEGATIVE (NEGATIVE); COLOR, URINE YELLOW (YELLOW); GLUCOSE, URINE (UA) AUTO NEGATIVE (NEGATIVE); KETONE, URINE AUTO NEGATIVE (NEGATIVE); LEUKOCYTE ESTERASE, URINE AUTO TRACE (NEGATIVE); MUCUS, URINE SMALL (NEGATIVE); NITRITE, URINE AUTO NEGATIVE (NEGATIVE); PROTEIN, URINE AUTO NEGATIVE (NEGATIVE); RBC, URINE AUTO 0 /HPF (0-3); SPECIFIC GRAVITY URINE AUTO 1.008 (1.002-1.035); SQUAMOUS EPITHELIAL CELL UR AU 1 /HPF (0-6); UROBILINOGEN, URINE AUTO 0.2 mg/dL (0.0-2.0); WBC, URINE AUTO 5 /HPF (0-3)
== END ==
LOC: M SFHCPLAZ 13:22
PROVIDERS: ATTEND Physician Assistant Medical
DX: R82.90 Unspecified abnormal findings in urine (principal); B96.20 Unspecified Escherichia coli [E. coli] as the cause of diseases classified elsewhere